=== PATIENT | male | born 1955 | race Caucasian/White ===

== ENCOUNTER 2016-09-09 19:25 | Emergency (ER) | payer OTHER ==
--- NOTE | ~2016-09-09 | CR63 ---
[facility] A Service of [facility] RADIOLOGY TEXT RESULTS PATIENT: AMADO PRECIADO LOCATION: SED : 59 UNIT #: [id number] AGE: [address]: Erlin Webb MD SEX: M ORDER DR: [id number] [place] [id number] E MR#: [id number] Acc #: [id number] NAME: AMADO PRECIADO : 1955 SEX: M STUDY DATE/TIME: 09/09/2016 21:18 UNIT: SED ROOM: STUDY DESCRIPTION: CR Chest 2 View Attending Physician: Erlin Webb M.D. Ordering Physician: Erlin Webb M.D. Primary Care Physician: No Primary Care Physician MEDICAL IMAGING REPORT This report is preliminary unless electronic signature is present. EXAM Two view chest HISTORY Chest tube displacement. TECHNIQUE 2 views of the chest were obtained. FINDINGS 2 views of the chest show postoperative changes of left pneumonectomy. There is a large left pleural effusion with an air-fluid level in the left chest cavity. The right lung is clear with no pneumothorax. Vascular markings are normal. Mediastinal contents are shifted slightly toward the left. IMPRESSION Status post left pneumonectomy with large effusion and air-fluid level. Subcutaneous emphysema is noted. The right lung remains clear. STAT * RESULT Dictated by... Yovany Rios M.D. THIS IS AN ELECTRONICALLY VERIFIED REPORT Yovany Rios M.D. at 09/09/2016 10:17 PM RLF/kirt [facility] A Service of [facility] RADIOLOGY TEXT RESULTS PATIENT: AMADO PRECIADO LOCATION: SED : 59 UNIT #: [id number] AGE: [address]: Erlin Webb MD SEX: M ORDER DR: TD: 09/09/2016 21:32 JOB #: [id number] MEDICAL IMAGING REPORT Page 1 of 1
[~2016-09-09 19:25] MED LIST: AMOXIL500 MG PO; BIAXIN PO; CARAFATE1 GM PO; LORTAB 7.5-5001 TAB PO; LYRICA PO; NO MEDICATIONS; NORCO1 TAB 10/3 DOB; ORUDIS75 M1; PHENERGAN PO; PREDNISONE PO; PRILOSEC20 M1 PO; ROBAXIN 750750 M1 DOB; SALSALATE PO
[2016-09-09] MEDS ORDERED: HYDROCODON-ACE1 EAC5 PO (19:31)
== END 2016-09-09 22:07 | disposition home or self-care (01) ==
LOC: SED 19:25
DX: T85.698A Other mechanical complication of other specified internal prosthetic devices, implants and grafts, initial encounter (principal); I26.99 Other pulmonary embolism without acute cor pulmonale; F17.200 Nicotine dependence, unspecified, uncomplicated; Z85.118 Personal history of other malignant neoplasm of bronchus and lung
CPT/HCPCS: 71020; 99283